=== PATIENT | male | born 1965 | race Caucasian/White ===

== ENCOUNTER 2018-11-28 10:24 | Emergency (ER) | payer BC ==
[2018-11-28 10:38] VITALS: RESP 18; TEMP 97.4
--- NOTE | 2018-11-28 11:30 | ED ---
Fall HPI - General Chief Complaint: Fall Stated Complaint: FALL, FACIAL/NOSE INJURY Time Seen by Provider: 11/28/18 10:57 Source: patient, RN notes reviewed Mode of arrival: wheelchair Limitations: no limitations - History of Present Illness Initial Comments: 53-year-old male presents emergency Department with parents with chief complaint of trip and fall. Patient was walking into mother's house in which he tripped forward striking his face. There was unknown loss conscious. Patient does admit that he is intoxicated. Patient is a daily drinker. Patient states his last tetanus was 4 years ago. Patient states she has mild facial pain denies an y headache or dizziness. Patient denies any extremity injury. Patient has extensive laceration on the nose, denies any loose dentition. - Related Data Home Medications Medication Instructions Recorded Confirmed HYDROcodone/APAP 10-325MG [Rosebud 1 - 2 tab PO TID PRN 11/28/18 11/28/18 10-325] Losartan Potassium 50 mg PO DAILY 11/28/18 11/28/18 Oxaprozin [Daypro] 600 - 1,200 mg PO DAILY 11/28/18 11/28/18 Previous Rx's Medication Instructions Recorded Amoxicillin/Potassium Clav 1 tab PO Q12HR #20 tab 11/28/18 [Augmentin 875-125 Tablet] Allergies Allergy/AdvReac Type Severity Reaction Status Date / Time No Known Allergies Allergy Verified 11/28/18 10:51 Review of Systems ROS Statement: Those systems with pertinent positive or pertinent negative responses have been documented in the HPI. ROS Other: All systems not noted in ROS Statement are negative. Past Medical History Past Medical History: Hypertension History of Any Multi-Drug Resistant Organisms: None Reported Past Surgical History: Orthopedic Surgery Additional Past Surgical History / Comment(s): hip Past Psychological History: No Psychological Hx Reported Smoking Status: Never smoker Past Alcohol Use History: Heavy Past Drug Use History: None Reported General Exam Limitations: no limitations General appearance: appears intoxicated Head exam: Present: atraumatic, normocephalic, normal inspection Eye exam: Present: normal appearance, PERRL, EOMI. Absent: scleral icterus, conjunctival injection, periorbital swelling ENT exam: Present: normal oropharynx, mucous membranes moist, TM's normal bilaterally, other (Left nostril there is a 1 cm laceration with an additional 2 cm laceration over the tip of the nose that extends down into the septal region, tenderness to face over the maxillary region bilaterally). Absent: normal exam Neck exam: Present: normal inspection, full ROM. Absent: tenderness, meningismus, lymphadenopathy Respiratory exam: Present: normal lung sounds bilaterally. Absent: respiratory distress, wheezes, rales, rhonchi, stridor Cardiovascular Exam: Present: regular rate, normal rhythm, normal heart sounds. Absent: systolic murmur, diastolic murmur, rubs, gallop, clicks Neurological exam: Present: alert, oriented X3, CN II-XII intact Course Vital Signs 11/28/18 11/28/18 10:34 13:15 Temperature 97.4 F L Pulse Rate 82 83 Respiratory 18 18 Rate Blood Pressure 141/89 137/83 O2 Sat by Pulse 99 99 Oximetry Procedures - Laceration Laceration #1 Consent Obtained: verbal consent Indication: laceration Site: face (Nose) Size (cm): 2 Description: flap, irregular Depth: simple, single layer Anesthetic Used: lidocaine 1%, without epi Anesthesia Technique: local infiltration Amount (mls): 5 Pre-repair: wound explored, irrigated extensively, deep structures intact Type of Sutures: nylon Size of Sutures: 6-0 Number of Sutures: 4 Technique: simple, interrupted Patient Tolerated Procedure: well, no complications Laceration #2 Consent Obtained: verbal consent Indication: laceration Site: face (Nose, left nostril) Size (cm): 1 Description: flap, irregular Depth: [id number] Anesthetic Used: lidocaine 1%, lidocaine 2% Anesthesia Technique: local infiltration Amount (mls): 3 Pre-repair: wound explored, irrigated extensively, deep structures intact Type of Sutures: nylon Size of Sutures: 6-0 Number of Sutures: 2 Patient Tolerated Procedure: well, no complications Medical Decision Making - Medical Decision Making 53-year-old male presented for fall, facial injury patient has nasal fracture, lacerations. CT of the rain C-spine and facial bones were obtained. Patient was given Augmentin be discharged on Augmentin return parameters were discussed. - Lab Data Result diagrams: 11/28/18 11:25 11/28/18 11:25 Lab Results 11/28/18 11/28/18 Range/Units 11:25 11:25 WBC 7.4 (3.8-10.6) k/uL RBC 4.71 (4.30-5.90) m/uL Hgb 15.5 (13.0-17.5) gm/dL Hct 46.0 (39.0-53.0) % MCV 97.7 (80.0-100.0) fL MCH 33.0 (25.0-35.0) pg MCHC 33.8 (31.0-37.0) g/dL RDW 12.3 (11.5-15.5) % Plt Count 256 (150-450) k/uL Neutrophils % 69 % Lymphocytes % 21 % Monocytes % 5 % Eosinophils % 2 % Basophils % 1 % Neutrophils # 5.1 (1.3-7.7) k/uL Lymphocytes # 1.6 (1.0-4.8) k/uL Monocytes # 0.4 (0-1.0) k/uL Eosinophils # 0.1 (0-0.7) k/uL Basophils # 0.0 (0-0.2) k/uL Sodium 140 (137-145) mmol/L Potassium 4.2 (3.5-5.1) mmol/L Chloride 102 (98-107) mmol/L Carbon Dioxide 26 (22-30) mmol/L Anion Gap 12 mmol/L BUN 10 (9-20) mg/dL Creatinine 0.97 (0.66-1.25) mg/dL Est GFR (CKD-EPI)AfAm >90 (>60 ml/min/1.73 sqM) Est GFR (CKD-EPI)NonAf >90 (>60 ml/min/1.73 sqM) Glucose 112 H (74-99) mg/dL Calcium 9.3 (8.4-10.2) mg/dL Magnesium 2.4 H (1.6-2.3) mg/dL Total Bilirubin 0.4 (0.2-1.3) mg/dL AST 117 H (17-59) U/L ALT 138 H (21-72) U/L Alkaline Phosphatase 54 (38-126) U/L Total Protein 8.0 (6.3-8.2) g/dL Albumin 4.6 (3.5-5.0) g/dL Lipase 145 (23-300) U/L Serum Alcohol 374 H* mg/dL Disposition Clinical Impression: Fall, Alcohol intoxication, Nasal fracture, Laceration of nose Disposition: HOME SELF-CARE Condition: Stable Instructions (If sedation given, give patient instructions): Care For Your Stitches (ED), Laceration (ED), Nasal Fracture (ED) Additional Instructions: Please return to the Emergency Department if symptoms worsen or any other concerns. Prescriptions: Amoxicillin/Potassium Clav [Augmentin 875-125 Tablet] 1 tab PO Q12HR #20 tab Is patient prescribed a controlled substance at d/c from ED?: No Referrals: Kodi Jane MD [Primary Care Provider] - 1-2 days [place] Perez DO [Doctor of Osteopathic Medicine] - 1-2 days Time of Disposition: 14:28
[2018-11-28 11:39] LABS: Basophils % (A) 1 %; Eosinophils # (A) 0.1 k/uL (0-0.7); Eosinophils % (A) 2 %; HGB 15.5 gm/dL (13.0-17.5); Lymphocytes # (A) 1.6 k/uL (1.0-4.8); Lymphocytes % (A) 21 %; MCHC 33.8 g/dL (31.0-37.0); MCV 97.7 fL (80.0-100.0); Mean Platelet Volume 6.1; Monocytes # (A) 0.4 k/uL (0-1.0); Monocytes % (A) 5 %; Neutrophils # (A) 5.1 k/uL (1.3-7.7); Neutrophils % (A) 69 %; Platelet Count 256 k/uL (150-450); RBC 4.71 m/uL (4.30-5.90); RDW 12.3 % (11.5-15.5); WBC 7.4 k/uL (3.8-10.6)
[2018-11-28 11:49] LABS: ALT 138 U/L (21-72); AST 117 U/L (17-59); African American GFR (CKD) >90 (>60 ml/min/1.73 sqM); Albumin 4.6 g/dL (3.5-5.0); Alkaline Phosphatase 54 U/L (38-126); Anion Gap 12 mmol/L; Blood Urea Nitrogen 10 mg/dL (9-20); Calcium 9.3 mg/dL (8.4-10.2); Carbon Dioxide 26 mmol/L (22-30); Chloride 102 mmol/L (98-107); Glucose 112 mg/dL (74-99); Magnesium 2.4 mg/dL (1.6-2.3); Potassium 4.2 mmol/L (3.5-5.1); Sodium 140 mmol/L (137-145); Total Bilirubin 0.4 mg/dL (0.2-1.3)
[2018-11-28 12:27] LABS: Alcohol 374 mg/dL
--- NOTE | 2018-11-28 12:45 | CT ---
EXAMINATION TYPE: CT brain gomez wo con DATE OF EXAM: 11/28/2018 COMPARISON: None HISTORY: 53-year-old male Fall, bloody nose CT DLP: 1371.6 mGycm Automated exposure control for dose reduction was used. Technique: Examination of the head was done in axial plane without intravenous contrast. Coronal and sagittal reconstructions performed. CT of the cervical spine was obtained in axial plane without intravenous injection of contrast mater ial. Coronal and sagittal reformatted images were obtained from the axial views for evaluation of f ractures, spinal alignment and canal. FINDINGS: Head: There is no evidence of acute intracranial hemorrhage, acute ischemic changes, mass, mass-effect, or extra-axial fluid collection. There is no effacement of cerebral sulci or basal subarachnoid cister ns. There is no hydrocephalus. There is no midline shift. Chance-white matter distinction is preserv ed. Partially empty sella. Mastoid air cells well pneumatized. No calvarial fracture. The facial bones reported separately. Cervical spine: No craniocervical junction abnormality, predental space widening, or prevertebral soft tissue swellin g. Straightening of the normal cervical lordosis but with preserved alignment. Assessment of the spinal canal from C4 to C5 and below is limited due to artifact from patient's shou lders. No acute fracture of the cervical spine. Mild facet arthropathy and uncovertebral joint spurring lower cervical spine. Sagittal and coronal reformatted images confirm above findings. COMBINED IMPRESSION: 1. No acute intracranial abnormality seen. 2. No acute fracture or malalignment of the cervical spine. 3. Facial bones reported separately.
--- NOTE | 2018-11-28 12:51 | CT ---
EXAMINATION TYPE: CT facial bones wo con DATE OF EXAM: 11/28/2018 COMPARISON: None HISTORY: 53-year-old male Fall, bloody nose TECHNIQUE: Contiguous axial scanning of the facial bones without IV contrast. Coronal reconstructions performed. CT DLP: Included in [id number] mGycm Automated exposure control for dose reduction was used. FINDINGS: Focal soft tissue swelling in the premental region. No gross bruising of the subcutaneous layer on th e left side of the face. Orbits and globes appear intact. The zygomatic arches, pterygoid plates, and TMJ as well as the davide ble appear intact. Some layering fluid in the right maxillary sinus with mild mucosal thickening throughout the bilatera l maxillary sinuses. Minimally buckled bilateral nasal bone fractures with soft tissue swelling parti cularly on the left as well as of foci of soft tissue air on the left. Refer to axial images 63, 60, and 59 Leftward nasal septal deviation. IMPRESSION: 1. FOCAL BRUISING ALONG THE LEFT SIDE OF FACE AND MENTAL REGION. 2. MINIMALLY BUCKLED BILATERAL NASAL BONE FRACTURES WITH SOFT TISSUE SWELLING GREATER ON THE LEFT. 3. SOME LAYERING FLUID IN THE RIGHT MAXILLARY SINUS BUT WITHOUT ADDITIONAL FACIAL BONE FRACTURE SEEN.
[2018-11-28] MEDS ORDERED: LIDOCAINE 1% INJ 10MG/ML (20 ML MDV) SQ ONE (13:03)
[2018-11-28 13:16] VITALS: BP 137/83; PULSE 83
[2018-11-28] MEDS ORDERED: cefTRIAXone IN SWFI 1,000 MG/10 ML SYRINGE IVP STA (14:24)
== END 2018-11-28 14:56 | disposition home or self-care (01) ==
LOC: EC 10:24
DX: S02.2XXA Fracture of nasal bones, initial encounter for closed fracture (principal); S01.21XA Laceration without foreign body of nose, initial encounter; F10.129 Alcohol abuse with intoxication, unspecified; I10 Essential (primary) hypertension; Z79.899 Other long term (current) drug therapy; W01.198A Fall on same level from slipping, tripping and stumbling with subsequent striking against other object, initial encounter; Y93.01 Activity, walking, marching and hiking; Y92.099 Unspecified place in other non-institutional residence as the place of occurrence of the external cause
CPT/HCPCS: 99284; 96374; 12013; 36415; 80053; 83690; 83735; 85025; 80320; 72125; 70486; 70450; J2001; J0696